=== PATIENT | female | born 1990 | race Caucasian/White ===

== ENCOUNTER 2017-05-09 08:17 | Inpatient (IN) ==
[2017-05-09 08:49] LABS: Apearance,Urine Slightly Hazy (Clear); Bilirubin,Urine Negative (Negative); Blood, Urine Negative (Negative); Glucose,Urine (UA) Negative (Negative); Hyaline Casts,Urine 1 /LPF (0-3); Ketones,Urine Negative (Negative); Mucus,Urine Occasional /LPF (Occasional); Nitrite,Urine Negative (Negative); Protein,Urine 100 MG/DL; RBC,Urine 3 /HPF (0-4); Squamous Epithelial Cell,Urine Occasional /HPF (0-10); Urine Color Yellow (Yellow); Urine Specific Gravity 1.021 (1.001-1.035); Urine Urobilinogen < 2.0 EU/DL (0.2-1.0); WBC,Urine 10 /HPF (0-6)
[2017-05-09 09:42] LABS: Basophils % 0.2 % (0.0-0.8); Eosinophils % 0.3 % (0.00-10.9); Hematocrit 33.6 VOL% (35.7-47.0); Hemoglobin 11.3 GM/DL (12.0-16.0); Immature Granulocytes % 4.1 %; Immature Granulocytes Absolute 0.55 #; Lymphocytes # 2.4 10*3/uL (1.4-4.0); Lymphocytes % 17.7 % (21.3-54.2); Mean Corpuscular HGB Conc 33.6 GM/DL (32-36); Mean Corpuscular Hemoglobin 31 PG (27-34); Mean Corpuscular Volume 90.6 FL (87-102); Mean Platelet Volume 12.1 FL (9.6-12.0); Monocytes # 1.5 10*3/uL (0.11-0.8); Monocytes % 11.3 % (1.7-12.7); NRBC # 0.02 10*3/uL; Neutrophils # 8.8 10*3/uL (1.4-7.4); Neutrophils % 66.4 % (38.7-73.9); Platelet Count 169 T/CUMM (130-400); Red Blood Count 3.71 MC/CUMM (3.8-5.5); Red Cell Distribution Width 12.5 % (9.3-17.3); White Blood Count 13.3 T/CUMM (4-12)
[2017-05-09 09:49] LABS: INR 0.9; PT Patient Result 9.7 SECS; Partial Thromboplastin Time 22.9 SECS (0-40)
[2017-05-09 10:00] LABS: Giant Platelets Few; Hypochromasia 1+; Microcytosis Slight; Platelet Estimate Normal
[2017-05-09 10:10] LABS: Alanine Aminotransferase 13 U/L (13-56); Albumin 2.9 G/DL (3.4-5.0); Alkaline Phosphatase 140 U/L (45-117); Aspartate Amino Transferase 15 U/L (0-37); Bilirubin,Direct < 0.100 MG/DL (0.0-0.20); Bilirubin,Total < 0.39 MG/DL (0.2-1.0); Blood Urea Nitrogen 12 MG/DL (7-18); Calcium 8.7 MG/DL (8.5-10.1); Glucose 108 MG/DL (74-106); Osmolality,Calculated 279.4 MOS/KG (273-304); Potassium 3.5 MMOL/L (3.5-5.1); Sodium 140 MMOL/L (136-145); Total Protein 5.9 G/DL (6.4-8.3); Uric Acid 7.8 MG/DL (2.6-6.0)
[2017-05-09] MEDS ORDERED: FAMOTIDINE 20 MG/2 ML VIAL IV ONE (10:33)
[2017-05-09] MEDS ORDERED: CITRIC ACID/SODIUM CITRATE 30 ML UDCUP PO ONE (10:33)
[2017-05-09] MEDS ORDERED: CLINDAMYCIN INJ 900 MG in PREMIX 1 EACH IV ONE (10:39)
[2017-05-09] MEDS ORDERED: GENTAMICIN INJ 360 MG in SODIUM CHLORIDE 0.9% 100 ML IV ONE (11:00)
[2017-05-09] MEDS ORDERED: OXYTOCIN/LR 20 UNIT/1,000 ML BAG IV SCH (11:00)
[2017-05-09] MEDS ORDERED: LACTATED RINGERS 1,000 ML IV SCH (11:00)
[2017-05-09] MEDS ORDERED: ONDANSETRON 4 MG/2 ML VIAL IV PRN (11:04)
[2017-05-09] MEDS ORDERED: SIMETHICONE CHEW 80 MG TABLET PO PRN (11:04)
[2017-05-09] MEDS ORDERED: ACETAMINOPHEN 325 MG TABLET PO PRN (11:04)
[2017-05-09] MEDS ORDERED: MAGNESIUM HYDROXIDE SUSP 30 ML UDCUP PO PRN (11:04)
[2017-05-09] MEDS ORDERED: RHO(D) IMMUNE GLOBULIN 300 MCG SYRINGE IM ONE (11:04)
[2017-05-09] MEDS ORDERED: OXYTOCIN/LR 20 UNIT/1,000 ML BAG IV ONE (11:04)
[2017-05-09] MEDS ORDERED: CARBOPROST TROMETHAMINE 250 MCG/ML AMP IM ONE (11:45)
[2017-05-09] MEDS ORDERED: MORPHINE 10 MG/10 ML VIAL ONE (12:37)
[2017-05-09] MEDS ORDERED: ONDANSETRON 4 MG/2 ML VIAL ONE (12:44)
[2017-05-09] MEDS ORDERED: DEXAMETHASONE 10 MG/1 ML VIAL ONE (12:44)
[2017-05-09] MEDS ORDERED: HYDROmorphone 2 MG/1 ML VIAL IV PRN (14:52)
[2017-05-09] MEDS ORDERED: hydrOXYzine HCL 25 MG/1 ML VIAL IM PRN (14:52)
[2017-05-09] MEDS: diphenhydrAMINE 50 MG/1 ML VIAL IV PRN (15:15)
[2017-05-09 16:33] LABS: Apearance,Urine CLEAR (Clear); Bilirubin,Urine Negative (Negative); Blood, Urine Negative (Negative); Glucose,Urine (UA) Negative (Negative); Ketones,Urine Negative (Negative); Nitrite,Urine Negative (Negative); Protein,Urine 30 MG/DL; RBC,Urine 1 /HPF (0-4); Squamous Epithelial Cell,Urine Occasional /HPF (0-10); Urine Color Straw (Yellow); Urine Specific Gravity 1.006 (1.001-1.035); Urine Urobilinogen < 2.0 EU/DL (0.2-1.0); WBC,Urine <1 /HPF (0-6)
[2017-05-09 18:38] LABS: Basophils % 0.2 % (0.0-0.8); Eosinophils % 0.1 % (0.00-10.9); Hematocrit 30.6 VOL% (35.7-47.0); Hemoglobin 10.5 GM/DL (12.0-16.0); Immature Granulocytes % 1.7 %; Immature Granulocytes Absolute 0.33 #; Lymphocytes # 1.7 10*3/uL (1.4-4.0); Lymphocytes % 8.5 % (21.3-54.2); Mean Corpuscular HGB Conc 34.3 GM/DL (32-36); Mean Corpuscular Hemoglobin 31 PG (27-34); Mean Corpuscular Volume 90.8 FL (87-102); Mean Platelet Volume 11.9 FL (9.6-12.0); Monocytes # 1.7 10*3/uL (0.11-0.8); Monocytes % 8.8 % (1.7-12.7); NRBC # 0.02 10*3/uL; Neutrophils # 15.7 10*3/uL (1.4-7.4); Neutrophils % 80.7 % (38.7-73.9); Platelet Count 183 T/CUMM (130-400); Red Blood Count 3.37 MC/CUMM (3.8-5.5); Red Cell Distribution Width 12.7 % (9.3-17.3); White Blood Count 19.5 T/CUMM (4-12)
[2017-05-09] MEDS ORDERED: CLINDAMYCIN INJ 900 MG in PREMIX 1 EACH IV SCH (19:00)
[2017-05-09] MEDS: CLINDAMYCIN INJ 900 MG in PREMIX 1 EACH IV SCH (19:17)
[2017-05-09] MEDS: LACTATED RINGERS 1,000 ML IV SCH ×2 (19:25)
[2017-05-09] MEDS: DOCUSATE SODIUM 100 MG CAPSULE PO SCH (21:50)
[2017-05-10] MEDS: CLINDAMYCIN INJ 900 MG in PREMIX 1 EACH IV SCH (03:36)
[2017-05-10] MEDS ORDERED: diphenhydrAMINE 50 MG/1 ML VIAL IV PRN (03:38)
[2017-05-10] MEDS: diphenhydrAMINE 50 MG/1 ML VIAL IV PRN (03:55)
[2017-05-10] MEDS ORDERED: hydrOXYzine HCL 25 MG/1 ML VIAL IM PRN (04:00)
[2017-05-10 06:41] LABS: Basophils % 0.2 % (0.0-0.8); Eosinophils % 0.3 % (0.00-10.9); Hematocrit 26.2 VOL% (35.7-47.0); Hemoglobin 9.1 GM/DL (12.0-16.0); Immature Granulocytes % 1.8 %; Immature Granulocytes Absolute 0.21 #; Lymphocytes # 1.9 10*3/uL (1.4-4.0); Lymphocytes % 16.7 % (21.3-54.2); Mean Corpuscular HGB Conc 34.7 GM/DL (32-36); Mean Corpuscular Hemoglobin 31 PG (27-34); Mean Corpuscular Volume 90.3 FL (87-102); Mean Platelet Volume 11.8 FL (9.6-12.0); Monocytes # 1.4 10*3/uL (0.11-0.8); Monocytes % 12.1 % (1.7-12.7); Neutrophils % 68.9 % (38.7-73.9); Platelet Count 136 T/CUMM (130-400); Red Cell Distribution Width 12.5 % (9.3-17.3); White Blood Count 11.5 T/CUMM (4-12)
[2017-05-10] MEDS: MULTIVITAMIN (PRENATAL) TABLET PO SCH (10:03)
[2017-05-10] MEDS: DOCUSATE SODIUM 100 MG CAPSULE PO SCH ×2 (10:03→21:31)
[2017-05-10] MEDS: oxyCODONE/ACETAMINOPHEN 5-325 MG TABLET PO PRN ×3 (12:35→23:10)
[2017-05-10] MEDS: IBUPROFEN 800 MG TABLET PO PRN (23:11)
[2017-05-11] MEDS: IBUPROFEN 800 MG TABLET PO PRN (06:29)
[2017-05-11] MEDS: oxyCODONE/ACETAMINOPHEN 5-325 MG TABLET PO PRN (06:30)
[2017-05-11 10:12] VITALS: BP 133/80
[2017-05-11] MEDS: DOCUSATE SODIUM 100 MG CAPSULE PO SCH (11:11)
[2017-05-11] MEDS: MULTIVITAMIN (PRENATAL) TABLET PO SCH (11:11)
== END 2017-05-11 10:30 | disposition home or self-care (01) | DRG 766 ==
LOC: N.LDOUT 08:17 → N.LD 08:18 → N.OB 14:50
PROVIDERS: ADMIT Obstetrics & Gynecology; ATTEND Obstetrics & Gynecology